=== PATIENT | female | born 1945 | race Caucasian/White ===

== ENCOUNTER → 2018-05-29 | Outpatient (CLI) | payer OTHER | LOC: MRI 07:18 | DX: S83.281A Other tear of lateral meniscus, current injury, right knee, initial encounter (principal); M17.11 Unilateral primary osteoarthritis, right knee; M25.461 Effusion, right knee; M71.21 Synovial cyst of popliteal space [Baker], right knee; X58.XXXA Exposure to other specified factors, initial encounter; Y93.89 Activity, other specified; Y92.89 Other specified places as the place of occurrence of the external cause; Y99.8 Other external cause status ==

== ENCOUNTER → 2019-04-25 | Outpatient (CLI) | payer OTHER | LOC: MRI 07:38 | DX: S83.282A Other tear of lateral meniscus, current injury, left knee, initial encounter (principal); S83.242A Other tear of medial meniscus, current injury, left knee, initial encounter; M25.462 Effusion, left knee; M71.22 Synovial cyst of popliteal space [Baker], left knee; M25.762 Osteophyte, left knee; M94.262 Chondromalacia, left knee; X58.XXXA Exposure to other specified factors, initial encounter; Y93.89 Activity, other specified; Y92.89 Other specified places as the place of occurrence of the external cause; Y99.8 Other external cause status ==

== ENCOUNTER → 2021-02-23 | Outpatient (CLI) | payer OTHER ==
[~2021-02-23] MED LIST: ALLEGRA ALLERG180 MG PO; CALCIUM 500-VI1 EAC1 PO; LOW DOSE ASPIRI81 M1 PO; MELOXICAM15 MG PO; MULTI VITAMIN1 EACH PO
[2021-02-23 09:10] LABS: HEMATOCRIT 37.3 % (37.0-47.0); HEMOGLOBIN 12.6 gm/dL (12.0-15.0); MCH 31.1 pg (26.0-34.0); MCHC 33.8 g/dL (28.0-37.0); RBC 4.06 mil/uL (4.20-5.00); RDW 13.3 % (10.5-14.5); WBC 6.8 thou/uL (4.0-11.0)
[2021-02-23 09:16] LABS: URINE BILIRUBIN NEGATIVE (Negative); URINE BLOOD NEGATIVE (Negative); URINE CLARITY CLEAR; URINE COLOR YELLOW; URINE GLUCOSE-RANDOM* NEGATIVE (Negative); URINE KETONES TRACE (Negative); URINE LEUKOCYTES-REFLEX TRACE (Negative); URINE NITRITE-REFLEX NEGATIVE (Negative); URINE PROTEIN (DIPSTICK) NEGATIVE (Negative); URINE UROBILINOGEN 0.2 E.U./dl (0.2-1.0)
[2021-02-23 09:17] LABS: ALBUMIN 3.7 g/dL (3.4-5.0); CALCIUM 9.6 mg/dL (8.5-10.1); CREATININE 1.2 mg/dL (0.6-1.0); POTASSIUM 4.2 mmol/L (3.5-5.1)
[2021-02-23 09:19] LABS: INR 0.95; PROTIME 10.4 Seconds (10.5-12.1)
== END ==
LOC: PAC 08:02
PROVIDERS: ATTEND Orthopaedic Surgery
DX: Z01.812 Encounter for preprocedural laboratory examination (principal)

== ENCOUNTER 2021-03-09 10:40 | Inpatient (IN) | payer OTHER ==
[~2021-03-09] VITALS: Ht 170.2 cm; Wt 80.3 kg
[2021-03-09 11:58] VITALS: BP 150/70
[2021-03-09 17:33] VITALS: BP 134/53
--- NOTE | 2021-03-09 19:45 | NUR ---
Admitted to 4S @ 1700 via bed. A/O X 4. ON 1 L O2 via nasal cannula post op. Had right total hip replacement by Dr. Gannon. lakisha dressing to right hip, teds on. LR @ 100 VIA RIght HAND. Regular diet. one bout of nausea at dinner time, zofran given, it resolved. Pain 2/10 right hip, no prns given.
[2021-03-09 20:00] VITALS: BP 131/63
[2021-03-10 05:20] VITALS: BP 132/56
--- NOTE | 2021-03-10 05:33 | NUR ---
RECEIVED CARE OF THIS PATIENT AT 1900. PATIENT ALERT AND ORIENTED X4. REMAINS ON BEDREST FOR NOW. USES BEDPAN. HAS ARSEN DRESSING ON R HIP. SCD'S AND TEDS ON. IV PATENT WITH FLUIDS INFUSING. C/O PAIN, MED GIVEN. SLEPT OFF AND ON DURING NIGHT.
[2021-03-10 08:07] VITALS: BP 130/54
[2021-03-10 10:33] VITALS: BP 130/54
--- NOTE | 2021-03-10 10:38 | NUR ---
Chart reviewed and case discussed with the care team. Pt is s/p rt thr and doing well with therapy. Goal is to dc home with outpt therapy. The pt lives at home with his spouse and has two steps to enter their home. He has a rwalker that he can use. He was indep prior to admission and sees Dr. Hopper for his pcp. No cm interventions indicated at this time. Likely dc later today to outpt f/u.
[2021-03-10 10:44] VITALS: BP 130/54
--- NOTE | 2021-03-11 13:42 | O ---
[facility] [place] [address] OPERATIVE REPORT Name: ANUJ ALVARADO Room #: 448-P [facility] IN M.R.#: [id number] Admission: 03/09/21 Attend Phys: David Gannon MD Discharge: 03/10/21 Date of : 45 Report #: [id number] THIS REPORT FOR: cc: Luigi Hopper MD, Neal A. MD Abraham,David Delacruz MD ~ DATE OF SERVICE: 03/09/2021 PREOPERATIVE DIAGNOSIS: Right hip osteoarthritis. POSTOPERATIVE DIAGNOSIS: Right hip osteoarthritis. PROCEDURE: Right total hip arthroplasty. SURGEON: David Gannon MD LOGISTICS SUPPORT: Jennifer Cummins PA-C INDICATION FOR LOGISTICS SUPPORT: Throughout the case, extensive retraction and manipulation of the hip including dislocation and reduction was required. This is supported by my veterinarian assistant. ANESTHESIA: LMA. IMPLANTS: A Patel [employer] Nephew size 13 high offset Synergy press-fit stem, size 54 R3 acetabular cup with one acetabular screw, size 36 +12 cobalt chrome head and single Accord cerclage cable for prophylactic femur fixation. ESTIMATED BLOOD LOSS: 150 mL. COMPLICATIONS: None. SPECIMENS: None. CONDITION UPON LEAVING THE OR: Stable. INDICATIONS FOR PROCEDURE: The patient is a 75-year-old female with severe right hip osteoarthritis. She had failed conservative measures for this and after discussion with her, she elected for right total hip arthroplasty. DESCRIPTION OF PROCEDURE: Risks, benefits, alternatives, and complications were discussed in detail with the patient including but not limited to risk of anesthesia, risk of damage to nerves, arteries, blood vessels, risk for infection, bleeding, risk for continued hip pain, leg length discrepancy, instability and need for reoperation. Informed consent was obtained from the patient. The right hip was appropriately marked in the preoperative holding [address] [address] OPERATIVE REPORT Name: ANUJ ALVARADO Room #: 448-P DIS IN M.R.#: [id number] Admission: 03/09/21 Attend Phys: David Gannon MD Discharge: 03/10/21 Date of : 45 Report #: [id number] area. IV Ancef was given for preoperative antibiotics. She was brought to the operating room and placed in the supine position on the operating room table. LMA anesthesia was induced without complication. She was then placed in the left lateral decubitus position with the right hip uppermost. Right hip and lower extremity were prepped and draped in normal sterile fashion. Timeout was performed properly identifying the patient and procedure as well as the instrumentation and implants. All in the operating room were in agreement. Standard posterior approach to the hip was made with 10 blade through the skin. Dissection was taken down to the fascia with Bovie cautery and [place] elevator was used to clean off the IT band. Fresh 10 blade was used to make an incision in the IT band and this was taken proximally and distally with curved Quinn scissor. Charnley retractor was placed. Trochanteric bursa was taken down with Bovie cautery. Piriformis tendon was identified, tagged and taken down with Bovie. Short external rotators were also taken down with Bovie cautery. Capsulotomy was made and capsule ends were tagged for later repair. The hip was dislocated. There was extensive osteoarthritic change of the femoral head with flattening of the femoral head. Femoral neck cut was made 1 cm proximal to the lesser trochanter based on preoperative templating and the femoral head was removed. Deep acetabular retractors were placed. Labrum was removed sharply. Pulvinar was removed with Bovie cautery. Acetabulum was then sequentially reamed up to a size 54, at which point there was excellent bleeding cancellous bone. A size 53 trial cup was placed, found to have a good fit. A final size 54 R3 acetabular cup was placed and seated. One acetabular screw was placed for backup fixation and polyethylene liner for a 36 head was placed. Attention was turned to the femur. This was reamed and broached up to a size 13, at which point the size 13 broach was stable, was trialed with a high offset neck and a 36 +0 hip was reduced, taken through range of motion, found to be somewhat unstable posteriorly and short. This was then trialed with successive head sizes and neck lengths up to a size +12. The 36 +12 had the best stability and leg length equality. Hip was dislocated. Broach was removed. A single Accord cerclage cable was placed around the proximal femur just proximal to the lesser trochanter for prophylactic fixation. A final size 13 high offset Synergy press-fit stem was placed and seated. This was trialed with a 36 +12 head. Hip was reduced, taken through range of motion, found to be stable, found to have equal leg lengths. Hip was dislocated one last time. A final size 36 +12 cobalt chrome head was placed. Hip was reduced, taken through range of motion, found to be stable, found to have equal leg lengths. Hip was thoroughly irrigated with normal saline. A periarticular injection consisting of morphine, ropivacaine, epinephrine, and Toradol was placed deep in the hip joint capsule. A gram of vancomycin was placed deep in the joint capsule and piriformis was repaired with 0 FiberWire. Fascia was closed with 0 Vicryl. Skin was closed with 2-0 Vicryl, skin staple and a ARSEN dressing was applied. The patient [facility] [address] [place] [address] OPERATIVE REPORT Name: ANUJ ALVARADO Room #: 448-P [facility] IN M.R.#: [id number] Admission: 03/09/21 Attend Phys: David Gannon MD Discharge: 03/10/21 Date of : 45 Report #: [id number] tolerated this procedure well and went to recovery room under care of Anesthesia postoperatively. <ELECTRONICALLY SIGNED> By: David Gannon MD 03/11/21 1342 [id number] David Gannon MD /nt
== END 2021-03-10 12:09 | disposition home or self-care (01) | DRG 470 ==
LOC: OR → TBA 10:51 → OR 11:45 → 4S 17:20
PROVIDERS: ADMIT Orthopaedic Surgery; ATTEND Orthopaedic Surgery
PROC: 0SR902A Replacement of Right Hip Joint with Metal on Polyethylene Synthetic Substitute, Uncemented, Open Approach (ICD-10-PCS; principal; 2021-03-09)
DX: M16.11 Unilateral primary osteoarthritis, right hip (principal); Z20.822 Contact with and (suspected) exposure to COVID-19
CPT/HCPCS: 10102; 50010; 50101; 50382; 50414; 51412; 53000; 53078; 53367; 56524; 56528; 56530; 57095; 57103; 57496; 62110; 62900; 70005

== ENCOUNTER 2021-03-20 15:41 | Inpatient (IN) | payer OTHER ==
[~2021-03-20] VITALS: Ht 170.2 cm; Wt 79.8 kg
[2021-03-20 16:37] VITALS: BP 118/51
[2021-03-20 18:33] LABS: HEMATOCRIT 30.4 % (37.0-47.0); HEMOGLOBIN 10.3 gm/dL (12.0-15.0); MCHC 33.8 g/dL (28.0-37.0); MCV 91.6 fL (80.0-100.0); RBC 3.32 mil/uL (4.20-5.00); RDW 13.1 % (10.5-14.5); WBC 9.3 thou/uL (4.0-11.0)
[2021-03-20 18:40] LABS: CREATININE 1.2 mg/dL (0.6-1.0); POTASSIUM 3.7 mmol/L (3.5-5.1)
[2021-03-20] MEDS ORDERED: ELIQUIS2.5 MG PO (18:42)
[2021-03-20] MEDS ORDERED: NORCO5 PO (18:43)
[2021-03-20 18:46] LABS: TOTAL BILIRUBIN 0.5 mg/dL (0.2-1.0); TOTAL PROTEIN 6.6 g/dL (6.4-8.2)
[2021-03-20 21:30] VITALS: BP 142/84
[2021-03-20 21:52] VITALS: BP 149/59
--- NOTE | 2021-03-21 02:45 | NUR ---
PT ARRIVED TO UNIT APPROX 213, ADDITIONAL CONSENTS OBTAINED, ADMISSION PACKET PROVIDED, PT ORIENTED TO ROOM. UPON ADMISSION ASSESSMENT, PT AOX4. PT REPORTS 9/10 SHARP RIGHT HIP PAIN. PT RECEIVING PRN PO OXYCODONE Q4HR WITH PRN IV MORPHINE Q4HR AVAILABLE. PT TOLERATING PO INTAKE OF FLUIDS WITHOUT ISSUE, PT NPO AT MIDNIGHT. PT VOIDING PER BEDPAN. PT RESTING IN BED THROUGHOUT SHIFT, FREQUENT REPOSITIONING ENCOURAGED, PT REFUSING REPOSITIONING ASSISTANCE DUE TO COMFORT PREFERENCES, NOTED TO SHIFT INDEPENDENTLY. SENSATION INTACT, CAPILLARY REFILL LESS THAN 3SEC, PERIPHERAL PULSES PALPABLE IN ALL EXTREMITIES. PT ENCOURAGED TO NOTIFY STAFF FOR ALL NEEDS, CALL LIGHT WITHIN REACH, BED ALARM ON, BED LOCKED IN LOWEST POSITION, FREQUENT MONITORING WILL CONTINUE.
[2021-03-21 04:41] VITALS: BP 137/62
[2021-03-21 07:23] VITALS: BP 130/66
--- NOTE | 2021-03-21 09:52 | NUR ---
Assumed care of pt at 0700. Pt a&px4. C/o rt hip pain. Prn pain medications administered. Pt went to pre-op to prepare for surgery. IVF infusing.
[2021-03-21 12:45] VITALS: BP 120/54
--- NOTE | 2021-03-21 13:10 | NUR ---
RECEIVED REFERRAL TO SET UP HH FOR PT AT DISCHARGE. FAXED REFERRAL TO [facility] SPOKE WITH RORY IN INTAKE SHE RECEIVED REFERRAL AND WILL REVIEW. PT IS IN SURGERY TODAY FOR A HIP REVISION AND POSS DC TOMORROW OR TUESDAY.
[2021-03-21 13:35] VITALS: BP 120/54
[2021-03-21 15:37] VITALS: BP 106/41
[2021-03-21 21:09] VITALS: BP 100/43
--- NOTE | 2021-03-22 01:27 | NUR ---
ASSUMED CARE OF PT AT 1900, BEDSIDE REPORT RECIEVED. ONESIMO ASSESSMENT COMPLETE. R HIP DRESSING AND ARSEN DRESSING CDI. MEDS GIVEN ORDERED PER MAR. IVF INFUSING. ICE TO R HIP AREA. PAIN MEDS GIVEN INDICATED. UP X 1 C WALKER, GAIT BELT, SBA. PROVDED EDUCATION ON POC. DENIES ANY OTHER NEEDS AT THIS TIME. HOURLY ROUNDING CONTINUING. CALL LIGHT IN REACH.
[2021-03-22 02:51] VITALS: BP 102/46
[2021-03-22 07:24] VITALS: BP 128/57
--- NOTE | 2021-03-22 09:51 | NUR ---
A/O X 4. ROOM AIR. STAND BY WITH WALKER. RIGHT AC IV. CONT B/B. ARSEN DRESSING RIGHT HIP-DRY, CLEAN, INTACT. BILATERAL TEDS ONS. D5 1/2 NS INFUSING @ 80MLS/HR VIA RIGHT AC. PIV DRESSING SLIGHTLY BLOODY BUT PATENT, FLUSHES WELL. ICE PACK TO RIGHT HIP.
[2021-03-22 16:21] VITALS: BP 111/36
[2021-03-22 20:13] VITALS: BP 102/40
--- NOTE | 2021-03-23 03:10 | NUR ---
ASSUMED CARE OF PT AT 1900. BEDSIDE REPORT RECIEVED. ONESIMO ASSESSMENT COMPLETE. UP X1 SBA C WALKER. C/O R HIP PAIN. PAIN MEDS GIVEN ACCORDINGLY. IVF INFUSING PER JUL. ARSEN DRESSING CDI, NO APPARENT DRAINAGE NOTED. ICE PACK REFILLED. HOURLY ROUNDING CONTINUING. CALL LIGHT IN REACH.
[2021-03-23 04:36] VITALS: BP 135/62
[2021-03-23 08:19] VITALS: BP 120/49
--- NOTE | 2021-03-23 08:48 | NUR ---
75 year old female who on 03-21 was 5 days status post right total hip replacement brought to the ER by her spouse after having outpatient x-ray and CT done that showed a pelvic fracture. Per PT home with outpatient is recommended. Will work with MD on planned date for discharge. The patient has a walker in her home, is A&O x4 and lives with spouse and can make needs known. Prior to THR patient was driving and fully independent. Pt. reports fully vaccinated including booster. Will discuss with attending planned date for discharge and disposition to be discuss as PT recommends home with outpatient. Plan is upon discharge by attending for patient to resume outpatient therapies. Discussed with MD, PT recommendation home with outpt therapy. MD agree with outpt [facility] therapy. Dc home today with [facility] outpt therapy.
--- NOTE | 2021-03-23 09:02 | NUR ---
Patient is A/O X 4. Room air. Stand by assist with walker. Steady gait. Right AC IV infiltrated and patient will be discharging today so patient did not want a new IV placed. Price dressing to right hip with ice pack in place. at bedside. Patient excited about going home.
[2021-03-23 13:37] VITALS: BP 120/54
--- NOTE | 2021-03-23 14:55 | NUR ---
PT ALREADY D/C. NO OT TX
--- NOTE | 2021-04-02 10:49 | O ---
[facility] [place] [address] OPERATIVE REPORT Name: ANUJ ALVARADO Room #: 437-P [facility] IN M.R.#: [id number] Admission: 03/20/21 Attend Phys: Luigi Hopper MD Discharge: 03/23/21 Date of : 45 Report #: [id number] THIS REPORT FOR: cc: Luigi Hopper MD, Neal A. MD Abraham,David Delacruz MD ~ DATE OF SERVICE: 03/21/2021 PREOPERATIVE DIAGNOSIS: Right greater trochanteric periprosthetic hip fracture. POSTOPERATIVE DIAGNOSIS: Right greater trochanteric periprosthetic hip fracture. PROCEDURES: 1. ORIF, right greater trochanter fracture. 2. Revision right hip arthroplasty stem only. SURGEON: David Gannon M.D. VENTURE CAPITAL ANALYST: Johanna Moore NP INDICATION FOR VENTURE CAPITAL ANALYST: Throughout the case, extensive retraction, manipulation of the hip including dislocation and reduction was required. This was supported by my language assistant. ANESTHESIA: LMA. ESTIMATED BLOOD LOSS: 200 mL. IMPLANTS: Patel and Nephew short standard 3 cable accord plate with 3 cerclage cables size 13 cemented Synergy high offset stem, 36+8 cobalt chrome head. TOURNIQUET TIME: There was no tourniquet. COMPLICATIONS: None. SPECIMENS: None. CONDITION UPON LEAVING THE OR: Stable. INDICATIONS FOR PROCEDURE: The patient is a 75-year-old female who is about 9 days out from a right total hip arthroplasty. She was doing well at her 1-week visit; however, yesterday, she was walking and felt a pop in her hip and had extreme pain in the right hip. She came to the office and had x-rays that showed a nondisplaced greater trochanteric fracture. CT scan was performed of this confirming a nondisplaced greater trochanter fracture. However, she has [facility] [address] [place] [address] OPERATIVE REPORT Name: ANUJ ALVARADO Room #: 437-P [facility] IN .R.#: [id number] Admission: 03/20/21 Attend Phys: Luigi Hopper MD Discharge: 03/23/21 Date of : 45 Report #: [id number] had escalation of her pain and was admitted for pain control and possible revision. After discussion with she and her , they elected for revision right hip arthroplasty with ORIF of the greater trochanter. DESCRIPTION OF PROCEDURE: Risks, benefits, alternatives, complications were discussed in detail with the patient including but not limited to risk of anesthesia, risk of damage to nerves, arteries, blood vessels, risk for infection, bleeding, risk for continued hip pain, leg length discrepancy, instability, need for reoperation. Informed consent was obtained from the patient. Right hip was appropriately marked in preoperative holding area. IV Ancef was given for preoperative antibiotics. She was brought to the operating room and placed in the supine position on the operating table. LMA anesthesia was induced without complication. She was placed in the left lateral decubitus position with the right hip uppermost. Right hip and lower extremity was prepped and draped in normal sterile fashion. Timeout was performed properly identifying the patient and procedure as well as the instrumentation and implants. All in the operating room in agreement. Previous incision was then opened with a 10 blade through the skin. Upon entering the cutaneous layer, there was a large hematoma that was evacuated. The fascial incision was opened with curved Quinn scissors and the knee and the hip was inspected. There was a greater trochanteric fracture that was extensively mobile and unstable. The capsular repair was taken down from the greater trochanter and the hip was dislocated. A femoral head was removed from the stem. The stem was easily removed as it was unstable. After this, the fracture was cleaned up, irrigated thoroughly and fixed with an accord 3 cable standard plate. These were tensioned appropriately and locked. The femoral canal was then reamed and broached up to a size 13. This was then trialed with a 36+12 head. Hip was reduced, taken through range of motion, found to be stable. Intraoperative cross table AP x-ray was taken and shown to have adequate reduction of the greater trochanteric fracture and an adequate fit of the stem. Hip was dislocated, the broach was removed. The final size 13 high offset Synergy cemented stem was cemented into place using standard cementation techniques. After the cement cured, this was trialed with a 36+8 head. Hip was reduced, taken through range of motion, found to be stable, found to have equal leg lengths. The cemented stem did sit up a little bit higher than the broach and so it is reasonable that +8 neck on the head was appropriate. Hip was dislocated. The trial head was removed and final size 36+8 cobalt chrome head was placed. Hip was reduced, taken through range of motion, found to be stable, found to have equal leg lengths. Wound was thoroughly irrigated with normal saline. Periarticular injection consisting of morphine, ropivacaine, epinephrine, Toradol was placed around the hip joint capsule and tissues. A gram of vancomycin was placed deep in the joint. The capsule and piriformis were repaired with 0 FiberWire. Fascia was closed with 0 Vicryl. Skin was closed with 2-0 Vicryl. Skin staple and a ARSEN dressing was applied. The [address] [place] [address] OPERATIVE REPORT Name: ANUJ ALVARADO Room #: 437-P [facility] IN M.R.#: [id number] Admission: 03/20/21 Attend Phys: Luigi Hopper MD Discharge: 03/23/21 Date of : 45 Report #: [id number] patient tolerated this procedure well and went to recovery room under care of Anesthesia postoperatively. <ELECTRONICALLY SIGNED> By: David Gannon MD 04/02/21 1049 [id number] [id number] David Gannon MD /nt
== END 2021-03-23 14:04 | disposition home or self-care (01) | DRG 480 ==
LOC: ER 15:41 → 4S 19:42 → EROBS 19:42 → 4S 21:27
PROVIDERS: Nurse Practitioner Family; ADMIT Family Medicine; ATTEND Family Medicine
DX: M97.01XA Periprosthetic fracture around internal prosthetic right hip joint, initial encounter (principal); S72.111A Displaced fracture of greater trochanter of right femur, initial encounter for closed fracture; S32.9XXA Fracture of unspecified parts of lumbosacral spine and pelvis, initial encounter for closed fracture; E44.1 Mild protein-calorie malnutrition; Z96.641 Presence of right artificial hip joint; M16.11 Unilateral primary osteoarthritis, right hip; E89.0 Postprocedural hypothyroidism; Z20.822 Contact with and (suspected) exposure to COVID-19; Z68.27 Body mass index [BMI] 27.0-27.9, adult; X58.XXXA Exposure to other specified factors, initial encounter; Y93.89 Activity, other specified; Y92.89 Other specified places as the place of occurrence of the external cause; Y99.8 Other external cause status
CPT/HCPCS: 10195; 50101; 50382; 50414; 51057; 51130; 51225; 51226; 51412; 53000; 53078; 54118; 56524; 56527; 56528; 56530; 57095; 57103; 57116; 58135; 58138; 58165; 58763; 59057; 62110; 62900; 70005